=== PATIENT | female | born 1990 | race Caucasian/White ===

== ENCOUNTER 2016-10-31 13:10 | Emergency (ER) | payer OTHER ==
[~2016-10-31] VITALS: Ht 162.6 cm; Wt 53.4 kg
[2016-10-31 13:16] VITALS: TEMP 36.7; Ht 162.6 cm; Wt 53.4 kg
[2016-10-31] MEDS ORDERED: BCPILLS PO (14:55)
--- NOTE | 2016-10-31 15:18 | EMERGENCY ROOM VISIT NOTE ---
History Report prepared by Anita: Meka Pineda Under the Supervision of: Dr. Rinku Rapp M.D. First contact with patient: 14:46 Chief Complaint: ABDOMINAL PAIN Stated Complaint: ABD. 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 was lying in bed after spouse picked her up from work felt better.. felt nauseated 2 hors ago none now. pt reports had script filled given generic form History of Present Illness The patient is a 25 year old white female who presents to the ED with a cc of constant sharp abdominal pain beginning this morning. Positive dizzy, tunnel vision, ear ringing, nausea. Negative vomiting, etoh or tobacco use. Source of History: patient Onset: this morning Position: abdomen Quality: sharp Timing: constant Associated Symptoms: + nausea, No vomiting Note: pt notes dizzy, tunnel vision, ear ringing Review of Systems See HPI for pertinent positives and negatives. A total of ten systems were reviewed and were otherwise negative. Past Medical & Surgical Medical Problems: (1) No active medical problems Family History FHx: total abdominal hysterectomy and bilateral salpingo-oophorectomy Social History Smoking Status: Never Smoker Marital Status: Housing Status: lives with significant other Occupation Status: employed Current/Historical Medications Scheduled Control Pills ( Control Pills), 1 TAB PO DAILY Ondasetron Odt (Zofran Odt), 4 MG SL Q6H Scheduled PRN Tramadol (Ultram), 50 MG PO Q8H PRN for Pain Allergies Coded Allergies: Penicillins (Unverified Allergy, Severe, SEVERE HEAD-TO-TOE HIVES, THROAT CLOSES, 10/31/16) Physical Exam Vital Signs Date Time Temp Pulse Resp B/P (MAP) Pulse Ox O2 Delivery O2 Flow Rate FiO2 10/31/16 16:29 62 13 104/71 99 Room Air 10/31/16 15:51 63 10/31/16 13:16 36.7 69 18 113/77 99 Room Air Physical Exam GENERAL: Awake, alert, well-appearing, NAD HENT: Normocephalic, atraumatic. EYES: Normal conjunctiva. Sclera non-icteric. NECK: Supple. No nuchal rigidity. FROM. RESPIRATORY: CTAB, no rhonchi, wheezing, crackles CARDIAC: RRR, no MRG ABDOMEN: Soft, BS+, mild suprapubic tenderness MSK: No chest wall TTP, no LE edema NEURO: GCS 15, CN 2-12 intact, moves all 4s on command SKIN: No rash or jaundice noted. Medical Decision & Procedures ER Provider Diagnostic Interpretation: Radiology results as stated below per my review and radiologist interpretation: PELVIC COMPLETE NON OB FINDINGS: TRANSABDOMINAL: Anteflexed uterus is seen. TRANSVAGINAL: Anteflexed uterus measures 9.0 x 3.5 x 4.3 cm. Endometrium is homogeneous, 0.2 cm. Intramural leiomyoma is seen involving the posterior upper uterine body, 1.0 x 1.4 x 1.2 cm. No submucosal fibroids are identified. The right ovary is seen, 3.7 x 2.1 x 2.2 cm containing normal-appearing follicles. Arterial inflow and venous outflow documented within the right ovary. The left ovary is obscured by bowel gas. There is no significant free pelvic fluid. IMPRESSION: 1. Normal sonographic appearance of the right ovary without evidence of torsion. 2. Intramural leiomyoma involves the posterior upper uterine body, 1.4 cm. 3. Left ovary obscured by bowel gas. The above report was generated using voice recognition software. It may contain grammatical, syntax or spelling errors. Electronically signed by: Wang Barragan M.D. Laboratory Results 10/31/16 15:30 Red Blood Count 5.08, Mean Corpuscular Volume 89.0, Mean Corpuscular Hemoglobin 31.1, Mean Corpuscular Hemoglobin Concent 35.0, Mean Platelet Volume 8.8, Neutrophils (%) (Auto) 55.5, Lymphocytes (%) (Auto) 36.4, Monocytes (%) (Auto) 6.4, Eosinophils (%) (Auto) 0.7, Basophils (%) (Auto) 0.8, Neutrophils # (Auto) 3.27, Lymphocytes # (Auto) 2.15, Monocytes # (Auto) 0.38, Eosinophils # (Auto) 0.04, Basophils # (Auto) 0.05 10/31/16 15:30 Test 10/31/16 14:50 10/31/16 15:30 Urine Color YELLOW Urine Appearance CLEAR (CLEAR) Urine pH 6.0 (4.5-7.5) Urine Specific [place] 1.011 (1.000-1.030) Urine Protein NEG (NEG) Urine Glucose (UA) NEG (NEG) Urine Ketones TRACE (NEG) Urine Occult Blood 1+ (NEG) Urine Nitrite NEG (NEG) Urine Bilirubin NEG (NEG) Urine Urobilinogen NEG (NEG) Urine Leukocyte Esterase NEG (NEG) Urine WBC (Auto) 1-5 /hpf (0-5) Urine RBC (Auto) 0-4 /hpf (0-4) Urine Hyaline Casts (Auto) 0 /lpf (0-5) Urine Epithelial Cells (Auto) 10-20 /lpf (0-5) Urine Bacteria (Auto) NEG (NEG) White Blood Count 5.90 K/uL (4.8-10.8) Red Blood Count 5.08 M/uL (4.2-5.4) Hemoglobin 15.8 g/dL (12.0-16.0) Hematocrit 45.2 % (37-47) Mean Corpuscular Volume 89.0 fL (80-100) Mean Corpuscular Hemoglobin 31.1 pg (25-34) Mean Corpuscular Hemoglobin Concent 35.0 g/dl (32-36) Platelet Count 313 K/uL (130-400) Mean Platelet Volume 8.8 fL (7.4-10.4) Neutrophils (%) (Auto) 55.5 % Lymphocytes (%) (Auto) 36.4 % Monocytes (%) (Auto) 6.4 % Eosinophils (%) (Auto) 0.7 % Basophils (%) (Auto) 0.8 % Neutrophils # (Auto) 3.27 K/uL (1.4-6.5) Lymphocytes # (Auto) 2.15 K/uL (1.2-3.4) Monocytes # (Auto) 0.38 K/uL (0.11-0.59) Eosinophils # (Auto) 0.04 K/uL (0-0.5) Basophils # (Auto) 0.05 K/uL (0-0.2) RDW Standard Deviation 39.5 fL (36.4-46.3) RDW Coefficient of Variation 12.1 % (11.5-14.5) Immature Granulocyte % (Auto) 0.2 % Immature Granulocyte # (Auto) 0.01 K/uL (0.00-0.02) Anion Gap 8.0 mmol/L (3-11) Est Creatinine Clear Calc Drug Dose 104.2 ml/min Estimated GFR () 139.2 Estimated GFR (Non- 120.1 BUN/Creatinine Ratio 12.5 (10-20) Calcium Level 9.4 mg/dl (8.5-10.1) Total Bilirubin 0.6 mg/dl (0.2-1) Direct Bilirubin 0.2 mg/dl (0-0.2) Aspartate Amino Transf (AST/SGOT) 17 U/L (15-37) Alanine Aminotransferase (ALT/SGPT) 20 U/L (12-78) Alkaline Phosphatase 67 U/L (45-117) Total Protein 8.9 gm/dl (6.4-8.2) Albumin 4.2 gm/dl (3.4-5.0) Lipase 225 U/L (73-393) Laboratory results reviewed by or ED Course 1458: The patient was evaluated in room C10. A complete history and physical exam was performed. 1735: I reevaluated the patient. Discussed results and discharge instructions: She verbalized understanding and agreement. The patient is ready for discharge. Medical Decision The patient is a 25 year old white female who presents to the ED with a cc of constant sharp abdominal pain beginning this morning. Differential diagnosis: Etiologies such as appendicitis, diverticulitis, PUD, biliary pathology, UTI, pancreatitis, obstruction, mesenteric ischemia, aortic pathology, infections, inflammatory bowel disease, renal colic, as well as others were entertained. Patient was seen and evaluated at the bedside. Patient had no pain when seen at the bedside. Patient had labs as well as a UA were completed. Patient did have a recent change in her medication but the control is fairly similar. Patient's menstrual bleeding stopped yesterday. Patient's labwork fairly unremarkable. Patient had a normal white count, hemoglobin. Patient UA negative for acute infection. Patient did have a transabdominal ultrasound was completed. I spoke with the radiologist. There is some trace nonspecific free fluid in the right ovary appeared normal under Doppler. Per the tech they were unable to find the left ovary. However being that it was not found this is likely not enlarged at which point the radiologist agreed and this less at risk for possible torsion. This was obstructed 2/2 to bowel gas. Patient had had recent BM. No vaginal bleeding or discharge. Patient again was told of these findings in addition to the fact that there was a small uterine fibroid. Patient was given follow-up for PLASTIC MANAGER. Patient was given strict follow-up, discharge, return precautions. Patient ambulated in tolerated by mouth and was safely discharged home. Medication Reconcilliation Current Medication List: was personally reviewed by me Blood Pressure Screening Patient's blood pressure: Normal blood pressure Impression Primary Impression: Uterine fibroid Additional Impression: Abdominal pain Scribe Attestation The scribe's documentation has been prepared under my direction and personally reviewed by me in its entirety. I confirm that the note above accurately reflects all work, treatment, procedures, and medical decision making performed by me. Departure Information Dispostion Home / Self-Care Prescriptions Tramadol (Ultram) 50 Mg Tab 50 MG PO Q8H Y for Pain, #12 TAB Prov: Rinku Rapp M.D. 10/31/16 Ondasetron Odt (ZOFRAN ODT) 4 Mg Tab 4 MG SL Q6H for Nausea, #6 TAB Prov: Rinku Rapp M.D. 10/31/16 Referrals No Doctor, Assigned (PCP) Martinez Dobbs M.D. [facility] Forms HOME CARE DOCUMENTATION FORM, IMPORTANT VISIT INFORMATION Patient Instructions My [facility] Additional Instructions Please return to the emergency department if you have worsening or recurrent symptoms not amenable to at-home treatment. Please call for a follow-up appointment with her primary care physician. Please take your medications as prescribed. If you have other concerns and/or complaints please feel free to also call your primary care physician's office or return the ED for further evaluation, management, and treatment. Problem Qualifiers Primary Impression: Uterine fibroid Uterine leiomyoma location: unspecified location Qualified Codes: D25.9 - Leiomyoma of uterus, unspecified Additional Impression: Abdominal pain Abdominal location: lower abdomen, unspecified Qualified Codes: R10.30 - Lower abdominal pain, unspecified
[2016-10-31 15:37] LABS: URINE APPEARANCE CLEAR (CLEAR); URINE BILIRUBIN NEG (NEG); URINE COLOR YELLOW; URINE NITRITE NEG (NEG); URINE SPECIFIC GRAVITY 1.011 (1.000-1.030); UROBILINOGEN NEG (NEG); ZZUR CULT IF INDIC CLEAN CATCH NO
[2016-10-31 15:38] LABS: MANUAL MICROSCOPIC REQUIRED? NO; REVIEW REQ? NO
[2016-10-31 15:47] LABS: BASO % 0.8 %; BASO ABS # 0.05 K/uL (0-0.2); COMPLETE YES; EOS % 0.7 %; HEMATOCRIT 45.2 % (37-47); IG% 0.2 %; LYMPH % 36.4 %; LYMPH ABS # 2.15 K/uL (1.2-3.4); MEAN CORPUSCULAR HEMOGLOBIN 31.1 pg (25-34); MEAN PLATELET VOLUME 8.8 fL (7.4-10.4); MONO % 6.4 %; NEUT % 55.5 %; PLATELET COUNT 313 K/uL (130-400); RED BLOOD COUNT 5.08 M/uL (4.2-5.4)
[2016-10-31 16:07] LABS: BUN/CREATININE RATIO 12.5 (10-20); CALCIUM 9.4 mg/dl (8.5-10.1); CREATININE 0.69 mg/dl (0.60-1.20); POTASSIUM 3.9 mmol/L (3.5-5.1)
--- NOTE | 2016-10-31 17:28 | DIAGNOSTIC IMAGING REPORT ---
PELVIC COMPLETE NON OB HISTORY: 25 years-old Female suprapubic TTP; r/o cyst, fibroid, enlarged ovaries COMPARISON: None available TECHNIQUE: Multiple real-time static images of the deep pelvic structures were obtained transabdominally and transvaginally assessing grayscale appearance, color and spectral flow. FINDINGS: TRANSABDOMINAL: Anteflexed uterus is seen. TRANSVAGINAL: Anteflexed uterus measures 9.0 x 3.5 x 4.3 cm. Endometrium is homogeneous, 0.2 cm. Intramural leiomyoma is seen involving the posterior upper uterine body, 1.0 x 1.4 x 1.2 cm. No submucosal fibroids are identified. The right ovary is seen, 3.7 x 2.1 x 2.2 cm containing normal-appearing follicles. Arterial inflow and venous outflow documented within the right ovary. The left ovary is obscured by bowel gas. There is no significant free pelvic fluid. IMPRESSION: 1. Normal sonographic appearance of the right ovary without evidence of torsion. 2. Intramural leiomyoma involves the posterior upper uterine body, 1.4 cm. 3. Left ovary obscured by bowel gas. The above report was generated using voice recognition software. It may contain grammatical, syntax or spelling errors. Electronically signed by: Wang Barragan M.D. 10/31/2016 5:27 PM Dictated Date/Time: 10/31/2016 5:24 PM
[2016-10-31] MEDS ORDERED: TRAM-10 PO (17:33)
[2016-10-31] MEDS ORDERED: ONDA4TAB10 SL (17:33)
[2016-10-31 18:02] VITALS: BP 111/64; PULSE 62; O2SAT 99
== END 2016-10-31 18:04 | disposition home or self-care (01) ==
LOC: C.EDB 13:12 → C.EDC 18:04
DX: D25.9 Leiomyoma of uterus, unspecified (principal); Z79.3 Long term (current) use of hormonal contraceptives

== ENCOUNTER → 2017-04-24 | Outpatient (CLI) | payer OTHER ==
[~2017-04-24] MED LIST: BCPILLS PO; ONDA4TAB10 SL; TRAM-10 PO
--- NOTE | 2017-04-24 14:51 | MAMMOGRAPHY REPORT ---
ULTRASOUND OF BOTH BREASTS: 04/24/2017 CLINICAL HISTORY: 26-year-old woman presents with a palpable lump in the upper outer quadrant of the left breast. No skin erythema, thickening or nipple discharge. Family history of breast cancer = mo ther diagnosed at age 48 or 48. COMPARISON: No prior exams were available for comparison. FINDINGS: The patient pointed out her area of lump, which was located in the 1:00 left breast, 4 cm f rom the nipple while she was lying in right lateral decubitus position with left arm extended. On pa lpation, there is an ovoid 1 x 2 cm firm area. On ultrasound, while scanning directly over the area of lump, there is a lobulated hypoechoic solid mass measuring approximately 9.0 x 4.0 x 6.5 mm, and a djacent slightly deeper anechoic benign simple cyst measuring 4.2 x 3.5 x 4.6 mm. Based on palpation , it is unclear if both of these lesions correlate as palpated. However, given the solid component, definitive characterization with an ultrasound guided core biopsy targeting the more solid appearing mass is recommended. IMPRESSION: ACR BI-RADS CATEGORY 4: SUSPICIOUS - FOLLOW-UP RECOMMENDED 1. Ultrasound guided core biopsy is recommended for a solid palpable 9 mm mass in the left 1:[address], 4 cm from the nipple. These results and recommendations were discussed with the patient at the time of the exam. The patie nt tentatively scheduled the biopsy prior to leaving our department. Victoria Beaver M.D. ay/:04/24/2017 10:08:41 [employer]: Dr. Victoria Beaver, [facility] letter sent: Abnormal 4/5 BI-RADS Code: ACR BI-RADS Category 4: Suspicious
== END | disposition home or self-care (01) ==
LOC: C.MAMM 08:16
PROVIDERS: ATTEND Nurse Practitioner Women's Health
DX: N63.21 Unspecified lump in the left breast, upper outer quadrant (principal)

== ENCOUNTER → 2017-05-03 | Outpatient (CLI) | payer OTHER ==
--- NOTE | 2017-05-03 13:58 | Discharge Instructions ---
Discharge Instructions Procedure Procedure Date: May 03, 2017. Reason for visit: Left Palpable Mass. Discharge Discharge Date: May 03, 2017. Discharge Diagnosis: post left breast mass ultrasound guided core biopsy Instructions Activity Recommendations: Additional Limitations (see below) Return to School/Work: no limitations Recommended Home Diet: No Limitations Provider Instructions: ACTIVITY RECOMMENDATIONS: * No lifting, pushing, pulling or exercising the affected side for three days. RETURN TO SCHOOL/WORK: * You may return to work/school after the procedure, but do not perform any strenuous activities for 24 to 48 hours. MEDICATIONS: * Tylenol (two 325 mg) every four to six hours if needed for mild pain (if not allergic to Tylenol). DIET: * Resume previous diet. SPECIAL CARE INSTRUCTIONS: * Keep biopsy site dry for 24 hours. May shower after 24 hours, but do not soak (bathe) incision. * May remove Tegaderm (plastic patch) tomorrow AFTER showering. * Leave the steri-strips on for one week. Allow the steri-strips to fall off by themselves. If not off after one week, you may remove them. You may place a Bandaid crosswise over the strips, if desired. * Apply ice 10 minutes on and 10 minutes off as needed. * Wear a bra at bedtime to sleep more comfortably for 2-3 days. * Your referring physician should have the results after approximately 5 to 7 business days. * Call for unusual bleeding, fever, drainage, etc or if you have any questions call [phone] during normal business hours or after hours call Dr Beaver, . FOLLOW UP VISIT: Follow-up with Referring Physician as scheduled. Allergies Coded Allergies: Penicillins (Unverified Allergy, Severe, SEVERE HEAD-TO-TOE HIVES, THROAT CLOSES, 10/31/16) Nikky Ball Recommendations: Call your doctor if: * Temperature above 101 degrees * Pain not relieved by pain medicine ordered * There is increased drainage or redness from any incision * You have any unanswered questions or concerns. Your Doctors Instructions noted above were prepared by provider Victoria Beaver. Patient Signature Section: Patient Instructions Signature Page La Nena Wesley Patient (or Guardian) Signature/Date: I have read and understand the instructions given to me by my caregivers. Caregiver/RN/Doctor Signature/Date: The above-named patient and/or guardian has received patient instructions on this date. + Original Patient Signature Page (only) stays with chart. Please make copy for patient.
--- NOTE | 2017-05-03 15:53 | MAMMOGRAPHY REPORT ---
ULTRASOUND GUIDED BIOPSY LEFT BREAST: 05/03/2017 CLINICAL HISTORY: Indeterminate 9 mm mass in the 1:00 left breast in area of palpable concern pointed out by the patient. Patient presents for ultrasound guided core biopsy. COMPARISON: Comparison is made to exam dated: 04/24/2017 ultrasound - [facility]. PATIENT CONSENT: The procedure, risks and benefits were discussed with the patient and informed conse nt was obtained both verbally and in writing. Specific risks to this procedure include: bleeding, in fection, puncture of adjacent structure, nontarget biopsy, sampling error, pain, metal allergy and me dication reaction. PROCEDURE DESCRIPTION: A time out was performed and the left breast was agreed as the site of biopsy. The skin was prepped and draped in the usual sterile fashion. The solid 9 mm circumscribed mass in t he 1:00 left breast was chosen as the target for biopsy. Subcutaneous and intraparenchymal 1% buffere d lidocaine, with and without epinephrine, was administered as local anesthesia. A skin incision was made. Through the incision, 4 samples were taken with a 14 gauge Achieve biopsy device. A ribbon sha ped metallic marker was placed at the biopsy site. Hemostasis was achieved after manual compression. The patient tolerated the procedure well and there was no immediate complication. The samples were s ent to the pathology department in an appropriately labeled container. Post procedure mammography was deferred given the patient's age. IMPRESSION: ULTRASOUND GUIDED BIOPSY Status post ultrasound guided core biopsy of an indeterminate 9 mm mass in the 1:00 left breast, in a n area of palpable concern pointed out by the patient. A ribbon-shaped biopsy marker clip was placed at the site of biopsy. The patient will receive notification of the biopsy results from her referring physician. Victoria Beaver M.D. ay/:05/03/2017 14:00:36 Ammonia Technician: Meli JERONIMO)(Maricruz), [facility]
== END | disposition home or self-care (01) ==
LOC: C.MAMM 13:13
PROVIDERS: ATTEND Nurse Practitioner Women's Health
DX: D24.2 Benign neoplasm of left breast (principal)